=== PATIENT | male | born 1960 | race Caucasian/White ===

== ENCOUNTER 2017-08-09 10:14 | Observation (INO) ==
--- NOTE | 2017-08-09 10:39 | Emergency Department Report ---
Cardiac General HPI - General Stated Complaint: SVT resolced vals Time Seen by Provider: 08/09/17 10:39 - Related Data Home Medications Medication Instructions Recorded Confirmed chlorthalidone 25 mg tablet 25 mg PO DAILY tab 06/15/17 08/09/17 aspirin 81 mg tablet,delayed 81 mg PO DAILY 07/27/17 08/09/17 release Flonase (Fluticasone) 50 mcg nasal 1 spray INTRANASAL BID 08/09/17 08/09/17 spray Lisinopril [Prinivil] 5 mg PO DAILY 08/09/17 08/09/17 Multivitamin [Multivitamins] 1 cap PO DAILY 08/09/17 08/09/17 [place]-3/Dha/Epa/Fish Oil [Fish Oil 1 each PO DAILY 08/09/17 08/09/17 1,000 mg Softgel] Previous Rx's Medication Instructions Recorded nystatin 100,000 unit/gram topical 1 applicatio TOP TID #60 each 06/30/17 powder Lexapro (escitalopram) 10 mg tablet 10 mg PO DAILY #90 tab 07/27/17 Allergies Allergy/AdvReac Type Severity Reaction Status Date / Time amiodarone AdvReac Severe nausea and Verified 08/09/17 10:36 weakness [facility] Clinic Medical History Anxiety (Acute Medical) Depression (Acute Medical) Hypertension (Acute Medical) Sleep apnea (Acute Medical) Surgical History: Portacath placement during chemo. Colonic ca Family History: Family History Mother Stroke Diabetes CHF (congestive heart failure) Father Diabetes Sister Sarcoma - Social History Smoking status: Never smoker Course Vital Signs Temperature 98.2 F 08/09/17 10:15 Pulse Rate 67 08/09/17 10:15 Respiratory Rate 18 08/09/17 10:15 Blood Pressure 123/62 08/09/17 10:15 Pulse Oximetry 96 08/09/17 10:15 Temperature 98.2 F 08/09/17 10:15 Pulse Rate 68 08/09/17 11:01 Respiratory Rate 12 08/09/17 10:31 Blood Pressure 116/61 08/09/17 11:01 Pulse Oximetry 97 08/09/17 11:01 Disposition Clinical Impression: SVT (supraventricular tachycardia) [place]position: [place] [facility] [place] Stable Prescriptions: No Action [place]-3/Dha/Epa/Fish Oil [Fish Oil 1,000 mg Softgel] 1 each PO DAILY Lisinopril [Prinivil] 5 mg PO DAILY Multivitamin [Multivitamins] 1 cap PO DAILY chlorthalidone 25 mg tablet 25 mg PO DAILY tab nystatin 100,000 unit/gram topical powder 1 applicatio TOP TID #60 each aspirin 81 mg tablet,delayed release 81 mg PO DAILY Flonase (Fluticasone) 50 mcg nasal spray 1 spray INTRANASAL BID Lexapro (escitalopram) 10 mg tablet 10 mg PO DAILY #90 tab Referrals: Leroy Walsh DO [Primary Care Provider] - Time of Disposition: 11:04 - Seen By: physician
[2017-08-09] MEDS ORDERED: SALINE FLUSH 10ml SYRINGE IVF PRN (10:44)
[2017-08-09 11:47] VITALS: BMI 37.3
[2017-08-09] MEDS ORDERED: SALINE FLUSH 10ml SYRINGE IV PRN (12:49)
[2017-08-09] MEDS ORDERED: FLECAINIDE 100 MG TABLET PO ONE (13:25)
--- NOTE | 2017-08-09 13:47 | Cardiology History & Physical ---
History of Present Illness Chief complaint: arrhythmia HPI: Dorian is a 56 year old male known to Dr. Smith with a history of paroxysmal atrial fibrillation and hypertension who was seen in the clinic by Dr. Walsh this morning for palpitations and admitted to observation at [facility] for antiarrhythmic therapy on Flecainide. His last Stress test was 03/03/17 and EF was 58%, normal, AWMI, ?IWMI Review of Systems - Constitutional Constitutional: Present: fatigue (when took Amiodarone). Absent: chills, fever( s) - EENMT Eyes: Absent: change in vision Balance: Absent: vertigo Mouth/Throat: Absent: sore throat - Cardiovascular Cardiovascular: Present: palpitations. Absent: chest pain, syncope, dyspnea on exertion, orthopnea Rhythm: Present: abnormal rhythm Vascular: Absent: pedal edema - Respiratory Respiratory: Absent: cough, dyspnea, dyspnea on exertion - Gastrointestinal Gastrointestinal: Present: abdominal pain, nausea (when on Amiodarone). Absent : diarrhea, vomiting - Genitourinary Genitourinary: Absent: dysuria - Integumentary/Breasts Integumentary: Absent: rash - Neurological Neurological: Absent: dizziness - Endocrine Endocrine: Present: palpitations PFSH Patient Stated Medical History Other HEENT Yes: wears glasses Cardiac Arrhythmia Yes: A Fib Hypertension Yes Sleep Apnea Yes Hx Kidney Stones Yes Chemotherapy Yes: 2003 Depression Yes Clinic Medical History SVT (supraventricular tachycardia) (Acute Medical) Anxiety (Acute Medical) Depression (Acute Medical) Hypertension (Acute Medical) Sleep apnea (Acute Medical) Surgical History: Portacath placement during chemo. Colonic ca Family History: Family History Mother Stroke Diabetes CHF (congestive heart failure) Father Diabetes Sister Sarcoma - Social History Smoking status: Never smoker (chews tobacco) Substance use type: does not use Alcohol intake frequency: a few times a week Household members: spouse Current occupational status: employed Current residence: Apartment/Private Home Medications Home Medications Medication Instructions Recorded Confirmed Type chlorthalidone 25 mg tablet 25 mg PO DAILY tab 06/15/17 08/09/17 History aspirin 81 mg tablet,delayed 81 mg PO DAILY 07/27/17 08/09/17 History release Flonase (Fluticasone) 50 mcg nasal 1 spray INTRANASAL BID 08/09/17 08/09/17 History spray Lisinopril [Prinivil] 5 mg PO DAILY 08/09/17 08/09/17 History Multivitamin [Multivitamins] 1 cap PO DAILY 08/09/17 08/09/17 History [place]-3/Dha/Epa/Fish Oil [Fish Oil 1 each PO DAILY 08/09/17 08/09/17 History 1,000 mg Softgel] Allergies Allergy/AdvReac Type Severity Reaction Status Date / Time amiodarone AdvReac Severe nausea and Verified 08/09/17 10:36 weakness Exam Vital signs: Temperature 97.9 F 08/09/17 11:46 Pulse Rate 64 08/09/17 11:46 Respiratory Rate 18 08/09/17 11:46 Blood Pressure 114/67 08/09/17 11:46 Pulse Oximetry 95 08/09/17 11:46 - Constitutional no acute distress, well nourished, obese, cooperative - Routine HEENT Exam Head: Present: normocephalic ENT: Present: mucous membranes moist - Routine Neck Exam Absent: JVD, carotid bruit - Routine Chest/Breast/Axilla Exam Chest wall: Absent: tenderness - Routine Respiratory Exam Present: CTA bilaterally. Absent: rales, wheezes - Routine Cardiovascular Exam Present: RRR, no murmur. Absent: JVD - Routine Abdominal Exam Present: soft, normoactive bowel sounds - Routine Extremities Exam Present: no edema - Routine Skin Exam Present: intact, dry, warm - Routine Neurological Exam Present: alert, oriented X3 - Routine Psychiatric Exam Present: normal affect, normal thought process Results 08/09/17 11:30 08/10/17 07:17 Intake and Output 08/08/17 08/09/17 08/09/17 22:59 06:59 14:59 Other: Weight 252 lb 13.923 oz Patient Weight 08/10/17 06:59 Weight 252 lb 13.923 oz Laboratory Results - last 24 hr 08/09/17 08/09/17 11:30 11:30 WBC 8.0 RBC 4.87 Hgb 15.2 Hct 44.3 MCV 91.0 MCH 31.2 MCHC 34.3 RDW Std Deviation 39.0 Plt Count 247 MPV 8.7 L Immature Gran % (Auto) 0.4 Neut % (Auto) 73.8 H Lymph % (Auto) 15.9 L [place] % (Auto) 7.4 Eos % (Auto) 1.9 Baso % (Auto) 0.6 Neut # (Auto) 5.9 Lymph # (Auto) 1.3 [place] # (Auto) 0.6 Eos # (Auto) 0.2 Baso # (Auto) 0.1 Abs Immat Gran (auto) 0.03 Turbidity < 20 Sodium 141 Potassium 3.2 L Chloride 102 Carbon Dioxide 26 Anion Gap 13 BUN 16.0 Creatinine 0.8 GFR Calculation 100 BUN/Creatinine Ratio 20 Glucose 102 Calculated Osmolality 272 Calcium 10.2 Magnesium 1.8 Total Bilirubin 0.80 Icterus Index < 2 AST 32 ALT 65 Alkaline Phosphatase 59 Troponin I < 0.012 Total Protein 8.3 H Albumin 4.5 Globulin 3.8 H Albumin/Globulin Ratio 1.2 TSH 0.78 Specimen Hemolysis < 15 - Imaging and Cardiology Echo: report reviewed Imaging & Cardiology Narrative: Date of Exam: 08/09/17 Type of Exam(s): US echo doppler complete DATE OF PROCEDURE August 09, 2017 This is a two-dimensional echo with spectral Doppler, color-flow and M-mode. It was obtained in a patient with atrial fibrillation. Left atrial dimension is normal. Left ventricle end-diastolic dimension is normal. Left ventricle wall thickness is at the upper limits of normal. LV systolic function is normal with ejection fraction of 68%. Right atrium is normal. Right ventricle is normal. Aortic root dimension is normal. Mitral valve is morphologically normal. Aortic valve appears to be a trileaflet structure with trace of aortic insufficiency. Tricuspid valve shows trace of tricuspid regurgitation with normal estimated pulmonary artery systolic pressure of 26. Pulmonary valve shows trace of pulmonary insufficiency. There is no pericardial effusion. IMPRESSION 1. Normal LV systolic function with ejection fraction of 68%. 2. Trace of aortic insufficiency. 3. Trace of tricuspid regurgitation with normal estimated pulmonary artery systolic pressure of 26. 4. Trace of pulmonary insufficiency. 08/10/17 12:18 EKG interpretations - Dysrhythmias Sinus rhythms and dysrhythmias: sinus rhythm - Blocks, axis, hypertrophy, ST abn QRS axis and voltage: left axis deviation (-30 to -90) Hospital Course This is a general summary of the patient's hospital course. For more details refer to the complete medical record. Assessment and Plan - Attestation Attestation Narrative: 08/10/17 13:07 Recommendation After examining the patient I agree with the above assessment. I am involved in the formulation of the patient's plan of care. - Assessment and Plan (1) SVT (supraventricular tachycardia) Current visit: Yes Status: Acute SVT: Non sustained, History of PAF - Start antiarrhythmic therapy on Flecainide. 100mg now X1 then 50mg BID - Check Mag and TSH - Echo - Repeat EKG in AM - Aspirin 81mg daily (2) Essential (primary) hypertension Current visit: Yes Status: Acute Continue home BP meds - Assessment and Plan SVT: Non sustained, History of PAF - Start antiarrhythmic therapy on Flecainide. 100mg now X1 then 50mg BID - Check Mag and TSH - Echo - Repeat EKG in AM - Aspirin 81mg daily HTN: Continue home BP meds
--- NOTE | 2017-08-09 15:11 | XRay Report ---
EXAM: XR chest 1V HISTORY: chest discomfort COMPARISON: No available studies for comparison. FINDINGS: The heart appears upper limits of normal size. The mediastinum is not widened. The trachea is midline. The pulmonary vascularity is not engorged. The lung hanna are clear and the costophrenic angles are sharp. The bony thorax is unremarkable. There is artifact from cardiac monitoring lead wires over the chest. IMPRESSION: No acute cardiopulmonary process is identified. .
[2017-08-09] MEDS: FLUTICASONE NASAL SPRAY 50mcg EA NOSTRIL SCH ×2 (21:09→21:15)
[2017-08-09] MEDS: ENOXAPARIN 40 MG/0.4 ML INJECTION SQ SCH (21:10)
[2017-08-09] MEDS: FLECAINIDE 50 MG TABLET PO SCH (21:10)
[2017-08-10 00:56] VITALS: O2SAT 96
[2017-08-10 07:31] VITALS: BP 114/64; PULSE 54; RESP 16; TEMP 97.1
[2017-08-10] MEDS ORDERED: MULTI-VITAMIN + MINERAL TABLET PO SCH (09:00)
[2017-08-10] MEDS ORDERED: --POM--CHLORTHALIDONE 25 MG TABLET PO SCH (09:00)
[2017-08-10] MEDS ORDERED: OMEGA-3 ACID ESTERS 1 GM CAPSULE PO SCH (09:00)
[2017-08-10] MEDS ORDERED: LISINOPRIL 5 MG TABLET PO SCH (09:00)
[2017-08-10] MEDS ORDERED: --POM--ASPIRIN 81 MG CHEWABLE TABLET PO SCH (09:00)
[2017-08-10] MEDS: ENOXAPARIN 40 MG/0.4 ML INJECTION SQ SCH (09:16)
[2017-08-10] MEDS: FLUTICASONE NASAL SPRAY 50mcg EA NOSTRIL SCH (09:16)
[2017-08-10] MEDS: FLECAINIDE 50 MG TABLET PO SCH (09:16)
--- NOTE | 2017-08-10 10:09 | Echocardiogram ---
DATE OF PROCEDURE August 09, 2017 This is a two-dimensional echo with spectral Doppler, color-flow and M-mode. It was obtained in a patient with atrial fibrillation. Left atrial dimension is normal. Left ventricle end-diastolic dimension is normal. Left ventricle wall thickness is at the upper limits of normal. LV systolic function is normal with ejection fraction of 68%. Right atrium is normal. Right ventricle is normal. Aortic root dimension is normal. Mitral valve is morphologically normal. Aortic valve appears to be a trileaflet structure with trace of aortic insufficiency. Tricuspid valve shows trace of tricuspid regurgitation with normal estimated pulmonary artery systolic pressure of 26. Pulmonary valve shows trace of pulmonary insufficiency. There is no pericardial effusion. IMPRESSION 1. Normal LV systolic function with ejection fraction of 68%. 2. Trace of aortic insufficiency. 3. Trace of tricuspid regurgitation with normal estimated pulmonary artery systolic pressure of 26. 4. Trace of pulmonary insufficiency. MTDD
--- NOTE | 2017-08-10 14:10 | Discharge Summary ---
<Estefany Quinn M - Last Filed: 08/13/17 07:58> Discharge Information Date of admission: 08/09/17 11:30 Anticipated date of discharge: 08/10/17 Attending Physician: Gage Smith MD Primary care physician: Leroy Walsh, - Discharge Diagnosis (1) SVT (supraventricular tachycardia) Status: Acute (2) Essential (primary) hypertension Status: Chronic - Laboratory Labs: 08/10/17 07:17 Laboratory Results - last 24 hr 08/09/17 08/10/17 08/10/17 19:14 01:08 07:17 Turbidity < 20 Sodium 144 Potassium 3.5 L Chloride 104 Carbon Dioxide 27 Anion Gap 13 BUN 20.0 Creatinine 1.0 D GFR Calculation 77 BUN/Creatinine Ratio 20 Glucose 96 Calculated Osmolality 280 Calcium 9.7 Magnesium 1.8 Icterus Index < 2 Troponin I < 0.012 < 0.012 Specimen Hemolysis < 15 < 15 < 15 08/10/17 07:17 Turbidity Sodium Potassium Chloride Carbon Dioxide Anion Gap BUN Creatinine GFR Calculation BUN/Creatinine Ratio Glucose Calculated Osmolality Calcium Magnesium Icterus Index Troponin I < 0.012 Specimen Hemolysis < 15 - Radiology Radiology: Date of Exam: 08/09/17 Type of Exam(s): US echo doppler complete DATE OF PROCEDURE August 09, 2017 This is a two-dimensional echo with spectral Doppler, color-flow and M-mode. It was obtained in a patient with atrial fibrillation. Left atrial dimension is normal. Left ventricle end-diastolic dimension is normal. Left ventricle wall thickness is at the upper limits of normal. LV systolic function is normal with ejection fraction of 68%. Right atrium is normal. Right ventricle is normal. Aortic root dimension is normal. Mitral valve is morphologically normal. Aortic valve appears to be a trileaflet structure with trace of aortic insufficiency. Tricuspid valve shows trace of tricuspid regurgitation with normal estimated pulmonary artery systolic pressure of 26. Pulmonary valve shows trace of pulmonary insufficiency. There is no pericardial effusion. IMPRESSION 1. Normal LV systolic function with ejection fraction of 68%. 2. Trace of aortic insufficiency. 3. Trace of tricuspid regurgitation with normal estimated pulmonary artery systolic pressure of 26. 4. Trace of pulmonary insufficiency. History of Present Illness HPI: Dorian is a 56 year old male known to Dr. Smith with a history of paroxysmal atrial fibrillation and hypertension who was seen in the clinic by Dr. Walsh this morning for palpitations and admitted to [place] [facility] [place]mic therapy on Flecainide. His last Stress test was 03/03/17 and EF was 58%, normal, AWMI, ?IWMI Hospital Course This is a general summary of the patient's hospital course. For more details refer to the complete medical record. Time spent with patient: 25 - 35 minutes DVT Prophylaxis: Lovenox Exam Vital signs: Temperature 97.1 F 08/10/17 07:30 Pulse Rate 54 L 08/10/17 07:30 Respiratory Rate 16 08/10/17 07:30 Blood Pressure 114/64 08/10/17 07:30 Pulse Oximetry 96 08/10/17 07:30 - Constitutional no acute distress, well nourished, cooperative - Routine HEENT Exam Head: Present: normocephalic ENT: Present: mucous membranes moist - Routine Neck Exam Absent: JVD, carotid bruit - Routine Chest/Breast/Axilla Exam Chest wall: Absent: tenderness - Routine Respiratory Exam Present: CTA bilaterally. Absent: rales, wheezes - Routine Cardiovascular Exam Present: RRR, no murmur. Absent: JVD - Routine Abdominal Exam Present: soft, normoactive bowel sounds - Routine Extremities Exam Present: no edema - Routine Skin Exam Present: intact, dry, warm - Routine Neurological Exam Present: alert, oriented X3 - Routine Psychiatric Exam Present: normal affect, normal thought process Results 08/09/17 11:30 08/10/17 07:17 Cardiac Enzymes 08/09/17 08/10/17 08/10/17 Range/Units 19:14 01:08 07:17 Troponin I < 0.012 < 0.012 < 0.012 (0-0.12) ng/ml Comprehensive Metabolic Panel 08/10/17 Range/Units 07:17 Sodium 144 (134-144) MEQ/L Potassium 3.5 L (3.6-5) MEQ/L Chloride 104 (98-107) MEQ/L Carbon Dioxide 27 (22-30) MEQ/L BUN 20.0 (9-20) MG/DL Creatinine 1.0 D (0.8-1.5) MG/DL Glucose 96 (75-110) MG/DL Calcium 9.7 (8.4-10.2) MG/DL Intake and Output 08/09/17 08/10/17 08/10/17 22:59 06:59 14:59 Intake Total 1200 / 1200 0 / 0 240 / 240 Output Total 450 / 450 275 / 275 Balance 750 / 750 0 / 0 -35 / -35 Intake: Oral 1200 / 1200 0 / 0 240 / 240 Output: Urine 450 / 450 275 / 275 Other: Urine Appearance Clear Urine Color Dark Yellow Urine Odor Normal Weight 254 lb 3.088 oz Patient Weight 08/11/17 06:59 Weight 254 lb 3.088 oz - EKG Interpretation EKG: sinus rhythm EKG shows: bradycardia Discharge Plan - Med Rec/Dispo Referrals/Follow Up: Gage Smith MD [Physician] - 2 Weeks Prescriptions: New Flecainide [Tambocor] 50 mg PO BID #60 tab Continue [place]-3/Dha/Epa/Fish Oil [Fish Oil 1,000 mg Softgel] 1 each PO DAILY Lisinopril [Prinivil] 5 mg PO DAILY Multivitamin [Multivitamins] 1 cap PO DAILY chlorthalidone 25 mg tablet 25 mg PO DAILY tab nystatin 100,000 unit/gram topical powder 1 applicatio TOP TID #60 each aspirin 81 mg tablet,delayed release 81 mg PO DAILY Flonase (Fluticasone) 50 mcg nasal spray 1 spray INTRANASAL BID Lexapro (escitalopram) 10 mg tablet 10 mg PO DAILY #90 tab - Disposition 01 Discharged Home, Self-Care - Dismissal Complete Discharge Instructions are:: Complete <Gage Smith - Last Filed: 08/13/17 13:03> Discharge Information Date of admission: 08/09/17 11:30 Attending Physician: Gage Smtih MD Primary care physician: Leroy Walsh DO - Discharge Diagnosis (1) SVT (supraventricular tachycardia) Status: Acute (2) Essential (primary) hypertension Status: Chronic - Laboratory Labs: 08/10/17 07:17 Hospital Course This is a general summary of the patient's hospital course. For more details refer to the complete medical record. Exam Vital signs: Temperature 97.1 F 08/10/17 07:30 Pulse Rate 54 L 08/10/17 07:30 Respiratory Rate 16 08/10/17 07:30 Blood Pressure 114/64 08/10/17 07:30 Pulse Oximetry 96 08/10/17 07:30 Results 08/09/17 11:30 08/10/17 07:17 Attestation Narriative - Attestation Attestation Narrative: 08/13/17 13:03 Recommendation After examining the patient I agree with the above assessment. I am involved in the formulation of the patient's plan of care.
== END 2017-08-10 14:40 | disposition home or self-care (01) ==
LOC: MED 10:14 → ED 10:14 → MED 11:55
PROVIDERS: ADMIT Internal Medicine Cardiovascular Disease; ATTEND Internal Medicine Cardiovascular Disease